=== PATIENT | female | born 1990 | race Caucasian/White ===

== ENCOUNTER 2025-07-05 06:18 | Day surgery (SDC) | payer OTHER ==
[2025-07-04 12:18] VITALS: BMI 24.3
[2025-07-05] MEDS ORDERED: AFRIN NASAL MIST 15 ML BOT ONE ×2 (06:45→07:03)
[2025-07-05] MEDS ORDERED: PROPOFOL 20 ML ONE (06:48)
[2025-07-05] MEDS ORDERED: Rocuronium Bromide 10 MG/ML (10ML VIAL) ONE (06:49)
[2025-07-05] MEDS ORDERED: Lidocaine 1% PF 5 ML VIAL ONE (06:49)
[2025-07-05] MEDS ORDERED: Ondansetron PF 4 MG/2 ML Vial ONE (06:49)
[2025-07-05] MEDS ORDERED: Lidocaine 4% PF 5 ML AMP ONE (06:51)
[2025-07-05] MEDS ORDERED: Bacitracin 1 PK ONE (07:02)
[2025-07-05 07:03] LABS: Hematocrit 33.9 % (34.9-44.5)
[2025-07-05] MEDS ORDERED: Lidocaine 1% w/Epinephrine 1:200K 30 ML VIAL ONE (07:03)
[2025-07-05 07:11] LABS: BHCG - Serum Negative (NEGATIVE); Pregs Control Background? CLEAR/WHITE (CLR/WHITE); Pregs Control Bar Appear? YES (CONTROL BAR)
[2025-07-05] MEDS ORDERED: SUGAMMADEX SODIUM 200 MG/2 ML VIAL ONE (08:45)
[2025-07-05] MEDS ORDERED: oxyCODONE 5 MG TAB ONE (10:01)
== END 2025-07-05 10:45 | disposition home or self-care (01) ==
LOC: CSHSDC 06:18
PROVIDERS: ATTEND Specialist
DX: J34.2 Deviated nasal septum (principal); J34.3 Hypertrophy of nasal turbinates; J34.89 Other specified disorders of nose and nasal sinuses; F41.9 Anxiety disorder, unspecified
CPT/HCPCS: 36415; 84703; 85014; J0169; J1100; J2250; J2405; J2704; J3010